=== PATIENT | female | born 1960 | race Caucasian/White ===

== ENCOUNTER 2022-12-24 10:40 | Outpatient (CLI) | payer BC, SELFPAY ==
--- NOTE | 2022-12-24 07:53 | W.ANESCHARGE ---
Anesthesia Charges Start Date/Time Anesthesia Start Date: 12/24/22 Anesthesia Start Time: 12:00 Stop Date/Time Anesthesia Stop Date: 12/24/22 Anesthesia Stop Time: 12:30
--- NOTE | 2022-12-24 12:33 | W.ANESCHARGE ---
Anesthesia Charges Start Date/Time Anesthesia Start Date: 12/24/22 Anesthesia Start Time: 12:00 Stop Date/Time Anesthesia Stop Date: 12/24/22 Anesthesia Stop Time: 12:30
== END 2022-12-24 10:41 | disposition home or self-care (01) ==
PROVIDERS: PCP Family Medicine; Visit Provider Internal Medicine Gastroenterology
DX: R19.5 Other fecal abnormalities (principal); K57.30 Diverticulosis of large intestine without perforation or abscess without bleeding; Q43.8 Other specified congenital malformations of intestine
CPT/HCPCS: 45378; 811; 812; J2704